=== PATIENT | male | born 1955 | race Two or more races ===

== ENCOUNTER → 2017-05-08 | Outpatient (CLI) | payer OTHER ==
[2017-05-08 08:56] LABS: BASOPHIL % 1.4 % (0-2); PLATELET COUNT 343 x10^3mcL (130-400); RED CELL DISTRIBUTION WIDTH 12.3 % (11.5-14.5)
[2017-05-08 09:58] LABS: ALKALINE PHOSPHATASE 71 U/L (46-116); ALT/SGPT 50 U/L (16-63); AST/SGOT 38 U/L (15-37); BILIRUBIN TOTAL 0.6 mg/dL (0.20-1.00); CALCIUM 9.2 mg/dL (8.5-10.1); CARBON DIOXIDE 24.5 mmol/L (21-32); CHLORIDE SERUM 92 mmol/L (98-107); CHOLESTEROL 195 mg/dL (<200); CREATININE SERUM 0.9 mg/dL (0.7-1.3); FREE T4 0.93 ng/dL (0.76-1.46); GFR1 > 60 mL/min; GLUCOSE SERUM 122 mg/dL (74-106); POTASSIUM SERUM 4.7 mmol/L (3.5-5.1); SODIUM SERUM 128 mmol/L (136-145); TOTAL PROTEIN, SERUM 7.9 g/dL (6.4-8.2); TRIGLYCERIDES 74 mg/dL (<150)
[2017-05-08 09:59] LABS: CHOLESTEROL/HDL RATIO 3.1; HDL CHOLESTEROL 62 mg/dL (40-60)
[2017-05-09 13:23] LABS: microalbumin:creatinine ratio 94.6 (0.0-30.0)
[2017-05-10 18:46] LABS: VITAMIN D 25-HYDROXY 30.7 ng/mL (30.0-100.0)
== END | disposition home or self-care (01) ==
LOC: LB 08:17
DX: R73.03 Prediabetes (principal); E66.09 Other obesity due to excess calories; E03.8 Other specified hypothyroidism; E53.8 Deficiency of other specified B group vitamins; E55.9 Vitamin D deficiency, unspecified; D50.0 Iron deficiency anemia secondary to blood loss (chronic); I10 Essential (primary) hypertension
CPT/HCPCS: 84439

== ENCOUNTER → 2017-09-04 | Outpatient (CLI) | payer OTHER ==
[2017-09-04 09:02] LABS: BASOPHIL % 1.3 % (0-2); PLATELET COUNT 374 x10^3mcL (130-400); RED CELL DISTRIBUTION WIDTH 12.5 % (11.5-14.5)
[2017-09-04 09:19] LABS: ALBUMIN 4.1 g/dL (3.4-5.0); ALKALINE PHOSPHATASE 86 U/L (46-116); ALT/SGPT 25 U/L (16-63); AST/SGOT 16 U/L (15-37); BILIRUBIN TOTAL 0.5 mg/dL (0.20-1.00); CALCIUM 9.5 mg/dL (8.5-10.1); CARBON DIOXIDE 28.3 mmol/L (21-32); CHLORIDE SERUM 94 mmol/L (98-107); FREE T4 1.08 ng/dL (0.76-1.46); GFR1 > 60 mL/min; GLUCOSE SERUM 125 mg/dL (74-106); HDL CHOLESTEROL 54 mg/dL (40-60); POTASSIUM SERUM 4.8 mmol/L (3.5-5.1); SODIUM SERUM 130 mmol/L (136-145); TOTAL PROTEIN, SERUM 8.2 g/dL (6.4-8.2); TRIGLYCERIDES 93 mg/dL (<150)
[2017-09-04 09:25] LABS: CHOLESTEROL 210 mg/dL (<200); CHOLESTEROL/HDL RATIO 3.9
== END | disposition home or self-care (01) ==
LOC: LB 08:10
DX: E11.22 Type 2 diabetes mellitus with diabetic chronic kidney disease (principal); I10 Essential (primary) hypertension; E78.2 Mixed hyperlipidemia; E03.8 Other specified hypothyroidism; E53.8 Deficiency of other specified B group vitamins
CPT/HCPCS: 84439; 86376

== ENCOUNTER → 2018-01-14 | Outpatient (CLI) | payer OTHER ==
[2018-01-14 09:09] LABS: ALBUMIN 4.1 g/dL (3.4-5.0); ALKALINE PHOSPHATASE 81 U/L (46-116); ALT/SGPT 25 U/L (16-63); AST/SGOT 15 U/L (15-37); BILIRUBIN TOTAL 0.5 mg/dL (0.20-1.00); CALCIUM 9.7 mg/dL (8.5-10.1); CHLORIDE SERUM 93 mmol/L (98-107); CHOLESTEROL 198 mg/dL (<200); CREATININE SERUM 1.1 mg/dL (0.7-1.3); GFR1 > 60 mL/min; GLUCOSE SERUM 103 mg/dL (74-106); HDL CHOLESTEROL 49 mg/dL (40-60); POTASSIUM SERUM 4.9 mmol/L (3.5-5.1); SODIUM SERUM 128 mmol/L (136-145); TOTAL PROTEIN, SERUM 7.9 g/dL (6.4-8.2); TRIGLYCERIDES 79 mg/dL (<150)
[2018-01-14 09:31] LABS: BASOPHIL % 0.8 % (0-2); RED CELL DISTRIBUTION WIDTH 13.3 % (11.5-14.5)
[2018-01-14 09:32] LABS: PLATELET COUNT 441 x10^3mcL (130-400)
[2018-01-15 13:14] LABS: microalbumin:creatinine ratio 435.2 (0.0-30.0)
== END | disposition home or self-care (01) ==
LOC: LB 08:11
DX: E11.22 Type 2 diabetes mellitus with diabetic chronic kidney disease (principal); N18.2 Chronic kidney disease, stage 2 (mild); I10 Essential (primary) hypertension; E78.2 Mixed hyperlipidemia; E03.8 Other specified hypothyroidism
CPT/HCPCS: 84439

== ENCOUNTER → 2018-08-13 | Outpatient (CLI) | payer OTHER ==
[2018-08-13 08:26] LABS: PLATELET COUNT 384 x10^3mcL (130-400); RED CELL DISTRIBUTION WIDTH 12.8 % (11.5-14.5)
[2018-08-13 08:52] LABS: ALBUMIN 4.2 g/dL (3.4-5.0); ALKALINE PHOSPHATASE 74 U/L (46-116); ALT/SGPT 32 U/L (16-63); AST/SGOT 17 U/L (15-37); BILIRUBIN TOTAL 0.4 mg/dL (0.20-1.00); CALCIUM 9.4 mg/dL (8.5-10.1); CARBON DIOXIDE 26.1 mmol/L (21-32); CHLORIDE SERUM 97 mmol/L (98-107); CHOLESTEROL 187 mg/dL (<200); CHOLESTEROL/HDL RATIO 3.7; CREATININE SERUM 1.1 mg/dL (0.7-1.3); FREE T4 1.21 ng/dL (0.76-1.46); GFR1 > 60 mL/min; GLUCOSE SERUM 124 mg/dL (74-106); HDL CHOLESTEROL 51 mg/dL (40-60); POTASSIUM SERUM 5.1 mmol/L (3.5-5.1); SODIUM SERUM 131 mmol/L (136-145); TRIGLYCERIDES 92 mg/dL (<150)
[2018-08-13 08:53] LABS: TOTAL PROTEIN, SERUM 8.4 g/dL (6.4-8.2)
== END | disposition home or self-care (01) ==
LOC: LB 08:07
DX: N18.2 Chronic kidney disease, stage 2 (mild) (principal); I10 Essential (primary) hypertension; E78.2 Mixed hyperlipidemia; E03.8 Other specified hypothyroidism
CPT/HCPCS: 84439

== ENCOUNTER → 2018-08-26 | Outpatient (CLI) | payer OTHER | END | disposition home or self-care (01) | LOC: MI 12:29 | PROC: BR30ZZZ Magnetic Resonance Imaging (MRI) of Cervical Spine (ICD-10-PCS; principal; 2018-08-26) | DX: M54.5 Low back pain (principal); M47.812 Spondylosis without myelopathy or radiculopathy, cervical region ==

== ENCOUNTER → 2019-02-11 | Outpatient (CLI) | payer OTHER ==
[2019-02-11 09:15] LABS: BASOPHIL % 1.2 % (0-2); RED CELL DISTRIBUTION WIDTH 12.4 % (11.5-14.5)
[2019-02-11 09:17] LABS: PLATELET COUNT 413 x10^3mcL (130-400)
[2019-02-11 09:39] LABS: ALBUMIN 4.4 g/dL (3.4-5.0); ALKALINE PHOSPHATASE 77 U/L (46-116); ALT/SGPT 32 U/L (16-63); AST/SGOT 21 U/L (15-37); BILIRUBIN TOTAL 0.44 mg/dL (0.20-1.00); CALCIUM 9.3 mg/dL (8.5-10.1); CARBON DIOXIDE 27.4 mmol/L (21-32); CHLORIDE SERUM 93 mmol/L (98-107); CHOLESTEROL 191 mg/dL (<200); CHOLESTEROL/HDL RATIO 3.4; FREE T4 1.45 ng/dL (0.76-1.46); GFR1 > 60 mL/min; HDL CHOLESTEROL 56 mg/dL (40-60); POTASSIUM SERUM 4.4 mmol/L (3.5-5.1); SODIUM SERUM 128 mmol/L (136-145); TRIGLYCERIDES 99 mg/dL (<150)
[2019-02-11 09:44] LABS: GLUCOSE SERUM 138 mg/dL (74-106)
[2019-02-11 09:46] LABS: TOTAL PROTEIN, SERUM 8.3 g/dL (6.4-8.2)
== END | disposition home or self-care (01) ==
LOC: LB 08:08
DX: E11.22 Type 2 diabetes mellitus with diabetic chronic kidney disease (principal); N18.2 Chronic kidney disease, stage 2 (mild); E78.00 Pure hypercholesterolemia, unspecified; E03.8 Other specified hypothyroidism
CPT/HCPCS: 84439

== ENCOUNTER → 2019-08-05 | Outpatient (CLI) | payer OTHER ==
[2019-08-05 09:52] LABS: RED CELL DISTRIBUTION WIDTH 12.1 % (11.5-14.5)
[2019-08-05 09:53] LABS: PLATELET COUNT 415 x10^3mcL (130-400)
[2019-08-05 11:12] LABS: ALBUMIN 4.1 g/dL (3.4-5.0); ALKALINE PHOSPHATASE 85 U/L (46-116); ALT/SGPT 28 U/L (16-63); AST/SGOT 21 U/L (15-37); BILIRUBIN TOTAL 0.5 mg/dL (0.20-1.00); CALCIUM 9.7 mg/dL (8.5-10.1); CHLORIDE SERUM 95 mmol/L (98-107); CREATININE SERUM 1.2 mg/dL (0.7-1.3); GFR1 > 60 mL/min; GLUCOSE SERUM 148 mg/dL (74-106); HDL CHOLESTEROL 49 mg/dL (40-60); POTASSIUM SERUM 5.5 mmol/L (3.5-5.1); SODIUM SERUM 130 mmol/L (136-145); TOTAL PROTEIN, SERUM 8.2 g/dL (6.4-8.2); TRIGLYCERIDES 104 mg/dL (<150)
[2019-08-05 11:15] LABS: CHOLESTEROL 220 mg/dL (<200); CHOLESTEROL/HDL RATIO 4.5
[2019-08-06 09:15] LABS: CREATININE UR 95.6 mg/dL (Not Estab.)
== END | disposition home or self-care (01) ==
LOC: LB 08:30
DX: E11.9 Type 2 diabetes mellitus without complications (principal); E03.8 Other specified hypothyroidism; E66.3 Overweight; I10 Essential (primary) hypertension; E78.00 Pure hypercholesterolemia, unspecified; E53.8 Deficiency of other specified B group vitamins; E55.9 Vitamin D deficiency, unspecified
CPT/HCPCS: 84153; 84439

== ENCOUNTER → 2020-03-30 | Outpatient (CLI) | payer OTHER ==
[2020-03-30 10:08] LABS: ALBUMIN 4.1 g/dL (3.4-5.0); ALKALINE PHOSPHATASE 84 U/L (46-116); ALT/SGPT 31 U/L (16-63); AST/SGOT 13 U/L (15-37); BILIRUBIN TOTAL 0.5 mg/dL (0.20-1.00); CALCIUM 9.9 mg/dL (8.5-10.1); CARBON DIOXIDE 24.6 mmol/L (21-32); CHLORIDE SERUM 88 mmol/L (98-107); CHOLESTEROL 148 mg/dL (<200); CHOLESTEROL/HDL RATIO 2.6; CREATININE SERUM 1.2 mg/dL (0.7-1.3); GFR1 > 60 mL/min; GLUCOSE SERUM 265 mg/dL (74-106); HDL CHOLESTEROL 56 mg/dL (40-60); POTASSIUM SERUM 5.1 mmol/L (3.5-5.1); TOTAL PROTEIN, SERUM 8.2 g/dL (6.4-8.2); TRIGLYCERIDES 60 mg/dL (<150)
[2020-03-30 11:09] LABS: SODIUM SERUM 123 mmol/L (136-145)
[2020-03-31 12:50] LABS: PLATELET COUNT 375 x10^3mcL (130-400); RED CELL DISTRIBUTION WIDTH 12.8 % (11.5-14.5)
[2020-03-31 13:22] LABS: MONOCYTE 10 % (0-7); SEGMENTED NEUTROPHILS 81 % (37-75)
[2020-03-31 13:23] LABS: BAND NEUTROPHIL 6 % (0-10); BASOPHIL 0 % (0-2); rbc morphology (normal/abnorm) ABNORMAL (NORMAL)
[2020-03-31 13:24] LABS: PLATELET MORPHOLOGY PLATELETS NORMAL
== END | disposition home or self-care (01) ==
LOC: LB 08:36
DX: E11.9 Type 2 diabetes mellitus without complications (principal); I10 Essential (primary) hypertension; E78.00 Pure hypercholesterolemia, unspecified